=== PATIENT | female | born 1985 | race Caucasian/White ===

== ENCOUNTER → 2017-03-27 | Outpatient (CLI) | payer BC | END | disposition home or self-care (01) | LOC: MW.CHFP 15:44 | PROVIDERS: ATTEND Emergency Medicine | DX: D64.9 Anemia, unspecified (principal) | CPT/HCPCS: 36415; 83550; 85027 ==

== ENCOUNTER 2018-02-20 02:51 | Emergency (ER) | payer SELFPAY ==
[2018-02-20] MEDS ORDERED: methylPREDNISolone Sodium Succinate 125 MG/2 ML SDV IM ONE (03:13)
[2018-02-20] MEDS ORDERED: Albuterol/Ipratropium 3.0-0.5 MG/3 ML Neb Soln NEB ONE (03:13)
--- NOTE | 2018-02-20 03:18 | EDM.PDOC ---
ED HPI GENERAL MEDICAL PROBLEM - General Chief Complaint: Respiratory Problem Stated Complaint: TROUBLE BREATHING, COUGHING Time Seen by Provider: 02/20/18 03:09 - History of Present Illness INITIAL COMMENTS - FREE TEXT/NARRATIVE: HISTORY AND PHYSICAL: History of present illness: The patient is a 33-year-old female with a history of asthma who does not smoke but lives with a family member who smokes and presents with a three-week history of dry hacking cough and shortness of breath that seems to be progressing despite her giving herself albuterol inhaler and DuoNeb's at home. The patient says she has not been on steroids for over a year and has only had a fever intermittently a few days ago and not recently. She's had no vomiting runny nose sinus pain or congestion no diarrhea and she denies . The patient says she has been giving herself treatments nugoxq-dxx-rusur and does not feel like it's improving and knows that she probably needs steroids. Patient has a family doctor but she has not seen that physician in the last 3 weeks for the symptoms. Patient did not get her flu shot this year. She has been eating and drinking normally. Patient states that she gave herself a duo neb and her inhaler approximately an hour and a half ago. Review of systems: As per history of present illness and below otherwise all systems reviewed and negative. Past medical history: As per history of present illness and as reviewed below otherwise noncontributory. Surgical history: As per history of present illness and as reviewed below otherwise noncontributory. Social history: No reported history of drug or alcohol abuse. Family history: As per history of present illness and as reviewed below otherwise noncontributory. Physical exam: General: Well-developed well-nourished female was not breathless on my evaluation and O2 sats ranged from 93-96% on room air. She has a very dry intermittent cough on my evaluation. HEENT: Atraumatic, normocephalic, pupils reactive, negative for conjunctival pallor or scleral icterus, mucous membranes moist, throat clear, neck supple, nontender, trachea midline. Lungs: Clear to auscultation, there is diminished breath sounds in the bases bilaterally but breath sounds equal bilaterally, chest nontender. Currently there is no overt wheezing stridor or work of breathing Cardiac: Regular rate and rhythm normal S1 and S2 and no overt murmurs are appreciated Abdomen: Soft, nondistended, nontender. NABS Pelvis: Stable nontender. Genitourinary: Deferred. Rectal: Deferred. Extremities: Atraumatic, negative for cords or calf pain. Neurovascular unremarkable. Neuro: Awake, alert, oriented. Cranial nerves II through XII unremarkable. Cerebellum unremarkable. Motor and sensory unremarkable throughout. Exam nonfocal. Diagnostics: Influenza chest x-ray Therapeutics: DuoNeb Solu-Medrol Impression: Asthma exacerbation/URI/bronchitis Definitive disposition and diagnosis as appropriate pending reevaluation and review of above. 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: Musculoskeletal History: Reports: None Neurological History: Reports: None Psychiatric History: Reports: None Endocrine/Metabolic History: Reports: None Hematologic History: Reports: None Immunologic History: Reports: None Oncologic (Cancer) History: Reports: None Dermatologic History: Reports: None - Infectious Disease History Infectious Disease History: Reports: None - Past Surgical History Head Surgeries/Procedures: Reports: None Social & Family History - Family History Family Medical History: Noncontributory - Tobacco Use Smoking Status *Q: Current Every Day Smoker Years of Tobacco use: 10 Packs/Tins Daily: 0.4 - Caffeine Use Caffeine Use: Reports: Coffee, Soda - Recreational Drug Use Recreational Drug Use: No ED ROS GENERAL - Review of Systems Review Of Systems: ROS reveals no pertinent complaints other than HPI. ED EXAM, GENERAL - Physical Exam Exam: See Below (See dictation) Course - Vital Signs Last Recorded V/S: Last Vital Signs Temp 36.4 C 02/20/18 03:01 Pulse 96 02/20/18 03:01 Resp 20 02/20/18 03:01 BP 133/85 02/20/18 03:01 Pulse Ox 93 L 02/20/18 03:01 - Orders/Labs/Meds Orders: Active Orders 24 hr Category Date Time Status RT Aerosol Therapy [RC] ASDIRECTED Care 02/20/18 03:13 Active Chest 2V [CR] Stat Exams 02/20/18 03:14 Taken INFLUENZA A+B AG SCREEN [RM] Stat Lab 02/20/18 03:30 Ordered Meds: Medications Discontinued Medications Generic Name Dose Route Start Last Admin Trade Name Harsha PRN Reason Stop Dose Admin Albuterol/Ipratropium 3 ml 02/20/18 03:13 02/20/18 03:35 Duoneb 3.0-0.5 Mg/3 Ml NEB 02/20/18 03:14 3 ml ONETIME ONE Administration Methylprednisolone Sodium Succinate 125 mg 02/20/18 03:13 02/20/18 03:34 Solu-Medrol IM 02/20/18 03:14 125 mg ONETIME ONE Administration Methylprednisolone Sodium Succinate Confirm 02/20/18 03:32 Solu-Medrol Administered 02/20/18 03:33 Dose 125 mg .ROUTE .STK-MED ONE Departure - Departure Time of Disposition: 04:07 Disposition: Home, Self-Care 01 Condition: Good Clinical Impression: Bronchitis Asthma exacerbation Qualifiers: Asthma severity: moderate Asthma persistence: unspecified Qualified Code(s): J45.901 - Unspecified asthma with (acute) exacerbation - Discharge Information Referrals: Tayo Jim MD [Primary Care Provider] - Forms: ED Department Discharge Additional Instructions: The following information is given to patients seen in the emergency department who are being discharged to home. This information is to outline your options for follow-up care. We provide all patients seen in our emergency department with a follow-up referral. The need for follow-up, as well as the timing and circumstances, are variable depending upon the specifics of your emergency department visit. If you don't have a primary care physician on staff, we will provide you with a referral. We always advise you to contact your personal physician following an emergency department visit to inform them of the circumstance of the visit and for follow-up with them and/or the need for any referrals to a consulting specialist. The emergency department will also refer you to a specialist when appropriate. This referral assures that you have the opportunity for followup care with a specialist. All of these measure are taken in an effort to provide you with optimal care, which includes your followup. Under all circumstances we always encourage you to contact your private physician who remains a resource for coordinating your care. When calling for followup care, please make the office aware that this follow-up is from your recent emergency room visit. If for any reason you are refused follow-up, please contact the [facility] emergency department at and ask to speak to the emergency department charge nurse. [facility] Primary care- [place] [address] Push hydration and use any [id number] meds as you choose for symptoms. Please continue to use her DuoNeb and albuterol inhaler every 6 hours as needed for wheezing and shortness of breath. Please take prednisone as prescribed. Return to ER as needed and as discussed in please call the clinic for follow-up appointment with your provider or one of the other providers as available in the next few days for reevaluation and further care - My Orders Last 24 Hours: My Active Orders 02/20/18 03:13 RT Aerosol Therapy [RC] ASDIRECTED 02/20/18 03:14 Chest 2V [CR] Stat 02/20/18 03:30 INFLUENZA A+B AG SCREEN [RM] Stat - Assessment/Plan Last 24 Hours: My Active Orders 02/20/18 03:13 RT Aerosol Therapy [RC] ASDIRECTED 02/20/18 03:14 Chest 2V [CR] Stat 02/20/18 03:30 INFLUENZA A+B AG SCREEN [RM] Stat
[2018-02-20] MEDS ORDERED: methylPREDNISolone Sodium Succinate 125 MG/2 ML SDV ONE (03:32)
[2018-02-20 04:19] VITALS: BP 117/73
--- NOTE | 2018-02-20 10:36 | CR ---
EXAM DATE: 02/20/18 PATIENT'S AGE: 33 Patient: NUNU AHN Facility: [place], [place] Site . Site : 1985 Study: XRay Chest [id number]/4/2018 3:56:16 AM Ordering Physician: Dallas Young Final Report: INDICATION: Cough, congestion, cold for 2 weeks TECHNIQUE: Chest 2 views. COMPARISON: None FINDINGS: Cardiovascular and mediastinum: Heart size and vasculature are normal in caliber and appearance. Mediastinum is within normal limits. Lungs and pleural spaces: Lungs are clear. No sign of infiltrate or mass. No sign of pleural effusion. No pneumothorax. Bones and soft tissues: No significant findings. IMPRESSION: No sign of acute disease. Dictated by Barbara Pulido MD @ Feb 20 2018 3:57AM (Electronic Signature) Report Signed by Proxy. MITCH
== END 2018-02-20 04:20 | disposition home or self-care (01) ==
LOC: MW.ED 02:51
DX: J45.901 Unspecified asthma with (acute) exacerbation (principal); J06.9 Acute upper respiratory infection, unspecified; J40 Bronchitis, not specified as acute or chronic; F17.210 Nicotine dependence, cigarettes, uncomplicated; Z79.899 Other long term (current) drug therapy
CPT/HCPCS: 71046; 87804; 94640; 96372; 99285; J2930; 99283

== ENCOUNTER 2020-07-25 10:37 | Emergency (ER) | payer MEDICAID, OTHER ==
[2020-07-25 10:58] VITALS: BP 136/72; PULSE 97
--- NOTE | 2020-07-25 11:06 | EDM.PDOC ---
ED HPI GENERAL MEDICAL PROBLEM - General Chief Complaint: Respiratory Problem Stated Complaint: SOB, COUGH FEVER SORE THROAT Time Seen by Provider: 07/25/20 10:38 Source of Information: Reports: Patient History Limitations: Reports: No Limitations - History of Present Illness INITIAL COMMENTS - FREE TEXT/NARRATIVE: HISTORY AND PHYSICAL: History of present illness: Patient is a 35-year-old female who presents to the emergency room with complaints of body aches, sore throat and cough. She does have some intermittent shortness of breath when she is coughing frequently. Her main concern today is that she could have COVID-19. 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 She has been taking Tylenol, ibuprofen and Mucinex civs-kug-eyzjhiz with minimal relief. Patient denies any change in vision, syncope or near syncope, chest pain, back pain, shortness of breath or cough. Denies any GI or symptoms. No concern for . Patient has been eating and drinking appropriately. Review of systems: As per history of present illness and below otherwise all systems reviewed and negative. Past medical history: As per history of present illness and as reviewed below otherwise noncontributory. Surgical history: As per history of present illness and as reviewed below otherwise noncontributory. Social history: See social history for further information Family history: As per history of present illness and as reviewed below otherwise noncontributory. Physical exam: General: Well developed and well nourished 35-year-old female. Alert and orientated x 3. Nontoxic in appearance and in no acute distress. Vital signs are stable and have been reviewed by me. Nursing notes were reviewed. HEENT: Atraumatic, normocephalic, pupils equal and reactive bilaterally, negative for conjunctival pallor or scleral icterus, mucous membranes moist, TMs normal bilaterally, throat clear, neck supple, nontender, trachea midline. No drooling or trismus noted. No meningeal signs. No hot potato voice noted. Lungs: Clear to auscultation, breath sounds equal bilaterally, chest nontender. Normal work of breathing, no accessory muscles used. Heart: S1S2, regular rate and rhythm without overt murmur Abdomen: Soft, nondistended, nontender. Skin: Intact, warm, dry. No lesions or rashes noted. Hematologic: No petechiae or purpra. Mucosa appropriate color and normal nail bed color and refill. Extremities: Atraumatic, moves all extremities per self without difficulty or deficits, negative for cords or calf pain. Neurovascular unremarkable. Neuro: Awake, alert, oriented. Cranial nerves II through XII unremarkable. Cerebellum unremarkable. Motor and sensory unremarkable throughout. Exam nonfocal. Notes: Negative COVID. Upon reevaluation the patient is appropriate for discharge. We discussed signs and symptoms that would prompt them to return to the Emergency Department. Medication, follow up and supportive care measures were reviewed and discussed. Voices understanding and is agreeable to plan of care. Denies any further questions or concerns at this time. Diagnostics: Coronavirus Therapeutics: None Prescription: None Impression: Viral upper respiratory illness Plan: 1. Today your physical exam is normal. Negative COVID screening. Good handwashing and contact precautions as we discussed. 2. Warm Salt water gargles (rinse and spit) 3-4 x daily. Please get a new tooth brush after completion of your medication 3. Tylenol and or ibuprofen as needed for pain management. 4. Follow-up with your primary care provider in the next 1-2 days. If your symptoms should worsen, new symptoms develop or any of the signs and symptoms we discussed should arise please return to the emergency room or call 911 (if needed). Definitive disposition and diagnosis as appropriate pending reevaluation and review of above. 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: Musculoskeletal History: Reports: None Neurological History: Reports: None Psychiatric History: Reports: None Endocrine/Metabolic History: Reports: None Hematologic History: Reports: None Immunologic History: Reports: None Oncologic (Cancer) History: Reports: None Dermatologic History: Reports: None - Infectious Disease History Infectious Disease History: Reports: None - Past Surgical History Head Surgeries/Procedures: Reports: None Social & Family History - Family History Family Medical History: Noncontributory - Caffeine Use Caffeine Use: Reports: Coffee - Recreational Drug Use Recreational Drug Use: No ED ROS GENERAL - Review of Systems Review Of Systems: Comprehensive ROS is negative, except as noted in HPI. ED EXAM, GENERAL - Physical Exam Exam: See Below (See dictation) Course - Vital Signs Last Recorded V/S: Last Vital Signs Temp 97.9 F 07/25/20 10:56 Pulse 97 07/25/20 10:56 Resp 18 07/25/20 10:56 BP 136/72 07/25/20 10:56 Pulse Ox 98 07/25/20 10:56 - Orders/Labs/Meds Labs: Laboratory Tests 07/25/20 Range/Units 11:00 COVID-19 (CASIMIRO) NEGATIVE (NEGATIVE) Departure - Departure Time of Disposition: 11:30 Disposition: Home, Self-Care 01 Clinical Impression: Viral upper respiratory illness - Discharge Information Instructions: Viral Respiratory Infection, [id number] Referrals: Tayo Jim MD [Primary Care Provider] - Forms: ED Department Discharge Additional Instructions: The following information is given to patients seen in the emergency department who are being discharged to home. This information is to outline your options for follow-up care. We provide all patients seen in our emergency department with a follow-up referral. The need for follow-up, as well as the timing and circumstances, are variable depending upon the specifics of your emergency department visit. If you don't have a primary care physician on staff, we will provide you with a referral. We always advise you to contact your personal physician following an emergency department visit to inform them of the circumstance of the visit and for follow-up with them and/or the need for any referrals to a consulting specialist. The emergency department will also refer you to a specialist when appropriate. This referral assures that you have the opportunity for follow-up care with a specialist. All of these measure are taken in an effort to provide you with optimal care, which includes your follow-up. Under all circumstances we always encourage you to contact your private physician who remains a resource for coordinating your care. When calling for follow-up care, please make the office aware that this follow-up is from your recent emergency room visit. If for any reason you are refused follow-up, please contact the [facility] Emergency Department at and asked to speak to the emergency department charge nurse. [facility] [address] [place] [address] [facility] [address] [place] [address] Thank you for choosing the [facility] emergency department in [place] for your medical needs today. It was a pleasure caring for you. Today you were seen in the emergency department for viral symptoms. 1. Today your physical exam is normal. Negative COVID screening. Good handwashing and contact precautions as we discussed. 2. Warm Salt water gargles (rinse and spit) 3-4 x daily. Please get a new tooth brush after completion of your medication 3. Tylenol and or ibuprofen as needed for pain management. 4. Follow-up with your primary care provider in the next 1-2 days. If your symptoms should worsen, new symptoms develop or any of the signs and symptoms we discussed should arise please return to the emergency room or call 911 (if needed). Sepsis Event Note (ED) - Evaluation Sepsis Screening Result: No Definite Risk - Focused Exam Vital Signs: Vital Signs Temp Pulse Resp BP Pulse Ox 07/25/20 10:56 97.9 F 97 18 136/72 98
== END 2020-07-25 11:39 | disposition home or self-care (01) ==
LOC: MW.ED 10:37
DX: J06.9 Acute upper respiratory infection, unspecified (principal); Z20.828 Contact with and (suspected) exposure to other viral communicable diseases
CPT/HCPCS: 99283; U0002

== ENCOUNTER 2020-09-23 07:47 | Day surgery (SDC) | payer MEDICAID, OTHER ==
[~2020-09-23 07:47] MED LIST: Lactated Ringers 1,000 ML IV SCH; Lidocaine 2% 5 ML SDV ONE; Midazolam 1 MG/ML 2 ML SDV ONE; Propofol 200 MG/20 ML SDV ONE; fentaNYL 100 MCG/2 ML SDV ONE
[2020-09-23] MEDS ORDERED: Lidocaine 1% with EPINEPHrine 1:100,000 20 ML MDV ONE (07:49)
--- NOTE | 2020-09-23 08:37 | PCM.PREANE ---
Preanesthetic Assessment - Anesthesia/Transfusion/Family Hx Anesthesia History: Prior Anesthesia Without Reaction Family History of Anesthesia Reaction: No Transfusion History: No Prior Transfusion(s) - Review of Systems General: No Symptoms Pulmonary: No Symptoms Cardiovascular: No Symptoms Gastrointestinal: No Symptoms Neurological: No Symptoms Other: Reports: None - Physical Assessment NPO Status Date: 09/22/20 Vital Signs: Last Vital Signs Temp 97.7 F 09/23/20 08:00 Pulse 82 09/23/20 08:00 Resp 16 09/23/20 08:00 BP 121/68 09/23/20 08:00 Pulse Ox 99 09/23/20 08:00 Height: 5 ft 6 in Weight: 61.235 kg ASA Class: 2 Mental Status: Alert & Oriented x3 Airway Class: Mallampati = 2 Dentition: Reports: Normal Dentition ROM/Head Extension: Full Lungs: Clear to Auscultation, Normal Respiratory Effort Cardiovascular: Regular Rate, Regular Rhythm - Lab Values: Laboratory Last Values Urine HCG, Qual NEGATIVE (NEGATIVE) 09/23/20 08:05 - Allergies Allergies/Adverse Reactions: Allergies Allergy/AdvReac Type Severity Reaction Status Date / Time No Known Allergies Allergy Verified 09/17/20 07:54 - Blood Blood Available: No - Anesthesia Plan Pre-Op Medication Ordered: None - Acknowledgements Anesthesia Type Planned: General Anesthesia (tiva) Pt an Appropriate Candidate for the Planned Anesthesia: Yes Alternatives and Risks of Anesthesia Discussed w Pt/Guardian: Yes Pt/Guardian Understands and Agrees with Anesthesia Plan: Yes Additional Comments: PMH: 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, none since, smoker, anx/dep/panic PLAN: tiva PreAnesthesia Questionnaire HEENT History: Reports: None Other HEENT History: wears glasses Cardiovascular History: Reports: None Respiratory History: Reports: Asthma Gastrointestinal History: Reports: None Genitourinary History: Reports: None 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: Musculoskeletal History: Reports: None Neurological History: Reports: None Psychiatric History: Reports: None Endocrine/Metabolic History: Reports: None Hematologic History: Reports: None Immunologic History: Reports: None Oncologic (Cancer) History: Reports: None Dermatologic History: Reports: None - Infectious Disease History Infectious Disease History: Reports: Other (See Below) Other Infectious Disease History: states was positive for COVID 2019 - Past Surgical History Head Surgeries/Procedures: Reports: None HEENT Surgical History: Reports: None Cardiovascular Surgical History: Reports: None Respiratory Surgical History: Reports: None GI Surgical History: Reports: None Female Surgical History: Reports: Cervical Cryotherapy Endocrine Surgical History: Reports: None Neurological Surgical History: Reports: None Musculoskeletal Surgical History: Reports: None Oncologic Surgical History: Reports: None Dermatological Surgical History: Reports: None - SUBSTANCE USE Tobacco Use Status *Q: Former Tobacco User Tobacco Use Within Last Twelve Months: Cigarettes - HOME MEDS Home Medications: Home Meds Albuterol [Proair HFA] 1 - 2 puff INH ASDIRECTED PRN 08/02/20 [History] Calcium Carbonate [Tums] 1 tab.chew CHEW ASDIRECTED PRN 08/02/20 [History] norethindrone-e.estradioL-iron [Junel Fe 24 Tablet] 1 tab PO ASDIRECTED 09/17/20 [History] - CURRENT (IN HOUSE) MEDS Current Meds: Current Medications Lactated Ringer's (Ringers, Lactated) 1,000 mls @ 100 mls/hr IV ASDIRECTED [facility] Last Admin: 09/23/20 08:21 Dose: 100 mls/hr Documented by: Discontinued Medications Fentanyl (Sublimaze) Confirm Administered Dose 100 mcg .ROUTE .STK-MED ONE Stop: 09/23/20 07:03 Lidocaine (Xylocaine-Mpf 2%) Confirm Administered Dose 5 ml .ROUTE .STK-MED ONE Stop: 09/23/20 07:03 Lidocaine/Epinephrine (Xylocaine 1% With Epinephrine 1:100,000) Confirm Administered Dose 20 ml .ROUTE .STK-MED ONE Stop: 09/23/20 07:50 Midazolam HCl (Versed 1 Mg/Ml) Confirm Administered Dose 2 mg .ROUTE .STK-MED ONE Stop: 09/23/20 07:03 Propofol (Diprivan 20 Ml) Confirm Administered Dose 400 mg .ROUTE .STK-MED ONE Stop: 09/23/20 07:03
[2020-09-23] MEDS ORDERED: Albuterol 0.083% 2.5 MG/3 ML Neb Soln NEB PRN (09:36)
[2020-09-23] MEDS ORDERED: EPINEPHrine 1:10,000 1 MG/10 ML Syringe IVPUSH PRN (09:36)
[2020-09-23] MEDS ORDERED: fentaNYL 100 MCG/2 ML SDV IVPUSH PRN (09:36)
[2020-09-23] MEDS ORDERED: 50% Dextrose in Water 50 ML Syringe IVPUSH PRN (09:36)
[2020-09-23] MEDS ORDERED: Atropine 0.1 MG/ML 10 ML Syringe IVPUSH PRN ×2 (09:36)
[2020-09-23] MEDS ORDERED: Naloxone 0.4 MG/ML Syringe IVPUSH PRN (09:36)
--- NOTE | 2020-09-23 09:48 | PCM.DCSUM1 ---
Discharge Summary - Hospital Course Diagnosis: Stroke: No - Discharge Data Discharge Date: 09/23/20 Discharge Disposition: Home, Self-Care 01 Condition: Good - Referral to Home Health Primary Care Physician: Cj Lane MD - Patient Instructions Diet: Usual Diet as Tolerated Activity: As Tolerated Driving: Do Not Drive Showering/Bathing: March Shower - Discharge Plan Home Medications: Home Meds Albuterol [Proair HFA] 1 - 2 puff INH ASDIRECTED PRN 08/02/20 [History] Calcium Carbonate [Tums] 1 tab.chew CHEW ASDIRECTED PRN 08/02/20 [History] norethindrone-e.estradioL-iron [ Tablet] 1 tab PO ASDIRECTED 09/17/20 [History] - Discharge Summary/Plan Comment DC Time >30 min.: Yes - General Info Date of Service: 09/23/20 Functional Status: Reports: Pain Controlled - Review of Systems General: Reports: No Symptoms HEENT: Reports: No Symptoms Pulmonary: Reports: No Symptoms Cardiovascular: Reports: No Symptoms Gastrointestinal: Reports: No Symptoms Genitourinary: Reports: No Symptoms Musculoskeletal: Reports: No Symptoms Skin: Reports: No Symptoms Neurological: Reports: No Symptoms Psychiatric: Reports: No Symptoms - Patient Data Vitals - Most Recent: Last Vital Signs Temp 36.5 C 09/23/20 08:00 Pulse 82 09/23/20 08:00 Resp 16 09/23/20 08:00 BP 121/68 09/23/20 08:00 Pulse Ox 99 09/23/20 08:00 Weight - Most Recent: 61.235 kg Lab Results - Last 24 hrs: Laboratory Results - last 24 hr 09/23/20 Range/Units 08:05 Urine HCG, Qual NEGATIVE (NEGATIVE) Med Orders - Current: Current Medications Albuterol (Proventil Neb Soln) 2.5 mg NEB ONETIME PRN PRN Reason: Wheezing Atropine Sulfate (Atropine 0.1 Mg/Ml) 0.5 mg IVPUSH ASDIRECTED PRN PRN Reason: Hypo-perfusion Atropine Sulfate (Atropine 0.1 Mg/Ml) 1 mg IVPUSH ASDIRECTED PRN PRN Reason: Hypo-Perfusion Dextrose/Water (Dextrose 50% In Water) 50 ml IVPUSH ASDIRECTED PRN PRN Reason: Hypoglycemia Epinephrine HCl (Epinephrine 1:10,000) 1 mg IVPUSH ASDIRECTED PRN PRN Reason: ACLS Guidelines Fentanyl (Sublimaze) 50 - 100 mcg IVPUSH Q5M PRN PRN Reason: Pain Lactated Ringer's (Ringers, Lactated) 1,000 mls @ 100 mls/hr IV ASDIRECTED PRERNA Last Admin: 09/23/20 08:21 Dose: 100 mls/hr Documented by: Naloxone HCl (Narcan) 0.1 mg IVPUSH ASDIRECTED PRN PRN Reason: Respiratory Depression Discontinued Medications Fentanyl (Sublimaze) Confirm Administered Dose 100 mcg .ROUTE .STK-MED ONE Stop: 09/23/20 07:03 Lidocaine (Xylocaine-Mpf 2%) Confirm Administered Dose 5 ml .ROUTE .STK-MED ONE Stop: 09/23/20 07:03 Lidocaine/Epinephrine (Xylocaine 1% With Epinephrine 1:100,000) Confirm Administered Dose 20 ml .ROUTE .STK-MED ONE Stop: 09/23/20 07:50 Midazolam HCl (Versed 1 Mg/Ml) Confirm Administered Dose 2 mg .ROUTE .STK-MED ONE Stop: 09/23/20 07:03 Propofol (Diprivan 20 Ml) Confirm Administered Dose 400 mg .ROUTE .STK-MED ONE Stop: 09/23/20 07:03 - Exam General: Reports: Alert, Oriented HEENT: Reports: Pupils Equal, Pupils Reactive, EOMI, Mucous Membr. Moist/[place] Neck: Reports: Supple Lungs: Reports: Clear to Auscultation, Normal Respiratory Effort Cardiovascular: Reports: Regular Rate, Regular Rhythm GI/Abdominal Exam: Normal Bowel Sounds, Soft, Non-Tender, No Organomegaly, No Distention, No Abnormal Bruit, No Mass, Pelvis Stable (Female) Exam: Normal External Exam, Normal Speculum Exam, Normal Bimanual Exam Rectal (Female) Exam: Normal Exam, Normal Rectal Tone Back Exam: Reports: Normal Inspection, Full Range of Motion Extremities: Normal Inspection, Normal Range of Motion, Non-Tender, No Pedal Edema, Normal Capillary Refill Skin: Reports: Warm, Dry, Intact Wound/Incisions: Reports: Healing Well Neurological: Reports: No New Focal Deficit Psy/Mental Status: Reports: Alert, Normal Affect, Normal Mood
--- NOTE | 2020-09-23 09:49 | PCM.OPNOTE ---
- General Post-Op/Procedure Note Date of Surgery/Procedure: 09/23/20 Post-Op Diagnosis: Same Anesthesia Technique: General Mask Primary Surgeon: Cj Lane EBL in mLs: 50 Complications: None Condition: Good
--- NOTE | 2020-09-23 10:09 | PCM.POSTAN ---
POST ANESTHESIA ASSESSMENT - MENTAL STATUS Mental Status: Alert, Oriented - VITAL SIGNS Vital Signs: Last Vital Signs Temp 97.7 F 09/23/20 08:00 Pulse 90 09/23/20 10:05 Resp 18 09/23/20 10:05 BP 116/67 09/23/20 10:05 Pulse Ox 94 L 09/23/20 10:05 - RESPIRATORY Respiratory Status: Respiratory Rate WNL, Airway Patent, O2 Saturation Stable - CARDIOVASCULAR CV Status: Pulse Rate WNL, Blood Pressure Stable, Elevated Pulse Rate - GASTROINTESTINAL GI Status: No Symptoms - POST OP HYDRATION Hydration Status: Adequate & Stable
[2020-09-23 10:42] VITALS: BP 106/66; PULSE 82
--- NOTE | 2020-09-23 10:56 | PCM48HPAN ---
Post Anesthesia Note - EVALUATION WITHIN 48HRS OF ANESTHETIC Vital Signs in Normal Range: Yes Patient Participated in Evaluation: Yes Respiratory Function Stable: Yes Airway Patent: Yes Cardiovascular Function Stable: Yes Hydration Status Stable: Yes Pain Control Satisfactory: Yes Nausea and Vomiting Control Satisfactory: Yes Mental Status Recovered: Yes Vital Signs: Last Vital Signs Temp 96.8 F L 09/23/20 10:10 Pulse 82 09/23/20 10:41 Resp 16 09/23/20 10:41 BP 106/66 09/23/20 10:41 Pulse Ox 97 09/23/20 10:41
--- NOTE | 2020-09-23 12:41 | OR ---
SURGEON: Cj Lane MD DATE OF PROCEDURE: 09/23/2020 PREOPERATIVE DIAGNOSES: Atypical squamous cells of undetermined significance with high-risk virus, unsatisfactory colposcopy. POSTOPERATIVE DIAGNOSES: Atypical squamous cells of undetermined significance with high-risk virus, unsatisfactory colposcopy. OPERATION PERFORMED: Loop electrosurgical excision procedure, conization of the cervix. PRIMARY SURGEON: Cj Lane MD ACTIVITY AIDE: OR tech. ANESTHESIA: Mask anesthesia with Dean Wells. ESTIMATED BLOOD LOSS: 50 mL. COMPLICATIONS: None. FINDINGS: Unsatisfactory cervix by colposcopy, ASCUS with high-grade virus. PROCEDURE IN DETAIL: The patient was brought to the OR, properly identified, and after adequate level of anesthesia, the patient placed in the lithotomy position. She was prepped and draped in sterile fashion as usual. Straight catheter was used to empty the bladder and then weighted speculum placed in the vagina. The cervix was identified. Allis clamp was placed at 3 and 9 o'clock on both sides of the cervix to block the descending branch of the uterine artery and the face of the cervix infiltrated with 1% Xylocaine, and then using LEEP excision, a cone of the cervix was removed. It was in pieces and sent for histopathology and the base was cauterized with a ball electrocautery. After that, inspection for 2-3 minutes showed no bleeding and the procedure was ended. The instrument and sponge count was correct. The patient tolerated the procedure well, went to recovery room in stable general condition. ELISA / JACKI /[id number]
== END 2020-09-23 11:00 | disposition home or self-care (01) ==
LOC: MW.SDS 07:47
PROVIDERS: ATTEND Obstetrics & Gynecology
DX: N87.1 Moderate cervical dysplasia (principal); F41.9 Anxiety disorder, unspecified; F32.9 Major depressive disorder, single episode, unspecified; D50.9 Iron deficiency anemia, unspecified; F17.210 Nicotine dependence, cigarettes, uncomplicated; Z79.899 Other long term (current) drug therapy
CPT/HCPCS: 57522; 81025; J2001; J2250; J2704; J7120; J3010

== ENCOUNTER 2023-09-14 17:39 | Emergency (ER) | payer OTHER, MEDICAID ==
[2023-09-14 17:48] VITALS: PULSE 80
[2023-09-14] MEDS ORDERED: Acetaminophen 500 MG Tab PO ONE (17:51)
[2023-09-14] MEDS ORDERED: Sodium Chloride 0.9% 2.5 ML Syringe FLUSH PRN (17:51)
[2023-09-14] MEDS ORDERED: Lidocaine 4% 1 each Patch TOP ONE (17:51)
[2023-09-14] MEDS ORDERED: Ondansetron 4 MG/2 ML SDV IVPUSH ONE (17:51)
[2023-09-14] MEDS ORDERED: Sodium Chloride 0.9% 10 ML Syringe FLUSH PRN (17:51)
[2023-09-14 18:25] LABS: BASOPHILS ABSOLUTE AUTO 0.06 K/uL (0.00-0.20); BASOPHILS PERCENT AUTO 0.5 % (0.0-1.0); EOSINOPHILS ABSOLUTE AUTO 0.79 K/uL (0.00-0.45); HEMATOCRIT 36.6 % (37.0-47.0); HEMOGLOBIN 12.2 g/dL (12.0-16.0); IMMATURE GRAN ABSOLUTE AUTO 0.03 K/uL (0.00-0.05); IMMATURE GRAN PERCENT AUTO 0.3 % (0.0-0.4); LYMPHOCYTES ABSOLUTE AUTO 1.55 K/uL (1.00-4.80); LYMPHOCYTES PERCENT AUTO 13.8 % (24.0-44.0); MEAN CORPUSCULAR HEMOGLOBIN 27.6 pg (28.0-32.0); MEAN CORPUSCULAR HGB CONC 33.3 g/dL (32.0-36.0); MEAN CORPUSCULAR VOLUME 82.8 fL (83.0-99.0); MEAN PLATELET VOLUME 9.2 fL (9.4-12.3); MONOCYTES ABSOLUTE AUTO 0.67 K/uL (0.00-0.80); NEUTROPHILS ABSOLUTE AUTO 8.11 K/uL (1.80-7.70); NEUTROPHILS PERCENT AUTO 72.4 % (41.0-71.0); PLATELET COUNT,PLT 316 K/uL (150-400); RED BLOOD CELL COUNT 4.42 M/uL (4.10-5.30); WHITE BLOOD CELL COUNT,WBC 11.21 K/uL (3.9-11.3)
[2023-09-14 19:13] LABS: APPEARANCE,URINE CLEAR; BILIRUBIN,URINE NEGATIVE (NEGATIVE); COLOR,URINE YELLOW; GLUCOSE,URINE NEGATIVE (NEGATIVE); KETONES,URINE NEGATIVE (NEGATIVE); LEUKOCYTE ESTERASE,URINE TRACE (NEGATIVE); NITRITE,URINE NEGATIVE (NEGATIVE); OCCULT BLOOD,URINE NEGATIVE (NEGATIVE); PROTEIN,URINE NEGATIVE (NEGATIVE); UROBILINOGEN,URINE 0.2 EU/dL (<2.0)
[2023-09-14 19:17] LABS: A/G RATIO 1.1 (0.9-1.6); ALBUMIN 3.6 g/dL (3.4-5.0); BILIRUBIN TOTAL 0.2 mg/dL (0.2-1.0); CALCIUM 9.3 mg/dL (8.5-10.1); CARBON DIOXIDE,CO2 25.6 mmol/L (21.0-32.0); CREATININE 0.5 mg/dL (0.6-1.0); EST CRCL DRUG DOSING (CG) 145.61 mL/min; POTASSIUM,K 4.3 mmol/L (3.5-5.1)
[2023-09-14 19:19] LABS: BACTERIA,URINE RARE (NEGATIVE); MUCUS,URINE LIGHT (NONE-MOD); RBC,URINE 0-2 (0-2/HPF); SQUAMOUS EPITHELIAL CELLS,UR OCCASIONAL; WBC,URINE 0-2 (0-5/HPF)
[2023-09-14 21:29] VITALS: BP 126/69
== END 2023-09-14 21:29 | disposition home or self-care (01) ==
LOC: MW.ED 17:39
DX: O99.891 Other specified diseases and conditions complicating pregnancy (principal); M54.50 Low back pain, unspecified; O99.511 Diseases of the respiratory system complicating pregnancy, first trimester; J45.909 Unspecified asthma, uncomplicated; Z86.16 Personal history of COVID-19; Z3A.10 10 weeks gestation of pregnancy
CPT/HCPCS: 36415; 76801; 80053; 81001; 83690; 84702; 85025; 86900; 86901; 96374; 99284; A9270; J2405; J3490